=== PATIENT | male | born 1995 | race Caucasian/White ===

== ENCOUNTER 2017-11-29 18:35 | Emergency (ER) | payer MEDICAID | END 2017-11-29 22:32 | disposition home or self-care (01) | LOC: FTE 18:35 | DX: S89.91XA Unspecified injury of right lower leg, initial encounter (principal); W22.8XXA Striking against or struck by other objects, initial encounter; Y92.9 Unspecified place or not applicable | CPT/HCPCS: 73562; 99283-25 ==

== ENCOUNTER 2018-12-16 14:19 | Emergency (ER) | payer OTHER, MEDICAID | END 2018-12-16 16:29 | disposition home or self-care (01) | LOC: FTE 14:19 | DX: S31.119A Laceration without foreign body of abdominal wall, unspecified quadrant without penetration into peritoneal cavity, initial encounter (principal); W26.0XXA Contact with knife, initial encounter; Y92.9 Unspecified place or not applicable | CPT/HCPCS: 99282-25; Z7502 ==